=== PATIENT | female | born 2000 | race Caucasian/White ===

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

== ENCOUNTER 2022-10-16 10:28 | Emergency (ER) | payer BC ==
[~2022-10-16] VITALS: Ht 172.7 cm; Wt 102.3 kg
[2022-10-16 10:33] VITALS: TEMP 97.8
[2022-10-16 12:11] LABS: BASO % 0.2 % (0.0-2.0); EOS # 0.2 K/mm3 (0.0-0.7); EOS % 2.1 % (0.0-4.0); GRAN % 78.9 % (42.2-75.2); HEMATOCRIT 42.8 % (37.0-47.0); HEMOGLOBIN 14.8 g/dl (12.5-16.0); LYMPH # 1.2 K/mm3 (1.2-3.4); LYMPH % 11.7 % (20.0-51.0); MEAN CELL VOLUME 87 fl (80.0-100.0); MEAN CORPUSCULAR HEMOGLOBIN 30 pg (27-31); MEAN CORPUSCULAR HGB CONC 35 g/dl (33.0-37.0); MEAN PLATELET VOLUME 10.5 fl (7.4-10.4); MONO # 0.6 K/mm3 (0.1-0.6); MONO % 5.9 % (1.7-9.3); PLATELET COUNT 238 K/mm3 (130-400); RED BLOOD COUNT 4.92 M/mm3 (4.10-5.30); REDCELL DISTRIBUTION WIDTH-CV 12.4 % (11.5-14.5)
[2022-10-16 12:22] LABS: ALBUMIN 4.1 gm/dL (3.5-5.0); BILIRUBIN,TOTAL 0.6 mg/dL (0.2-1.2); CALCIUM 9.2 mg/dL (8.4-10.2); CREATININE, serum 0.68 mg/dL (0.57-1.11); POTASSIUM 3.8 mmol/L (3.5-4.5); TOTAL PROTEIN 7.7 gm/dL (6.2-8.1)
[2022-10-16] MEDS ORDERED: REGLAN 10MG10 MG/TAB PO (13:13)
[2022-10-16] MEDS ORDERED: BENTYL 20MG20 MG/TAB PO (13:13)
[2022-10-16 13:23] VITALS: BP 129/72; PULSE 86
== END 2022-10-16 13:23 | disposition home or self-care (01) ==
LOC: COL.ER 10:28
PROVIDERS: Emergency Medicine
DX: R10.11 Right upper quadrant pain (principal); R10.13 Epigastric pain; R11.0 Nausea; Z28.310 Unvaccinated for COVID-19
CPT/HCPCS: J1885; J2765